=== PATIENT | female | born 1935 | race Caucasian/White ===

== ENCOUNTER 2020-01-10 16:27 | Emergency (ER) | payer SELFPAY ==
--- NOTE | 2020-01-10 17:03 | EDM.PDOC ---
<Anabel Werner - Last Filed: 01/10/20 17:33> ED HPI GENERAL MEDICAL PROBLEM - General Chief Complaint: Gastrointestinal Problem Stated Complaint: CONSTIPATION Time Seen by Provider: 01/10/20 16:50 Source of Information: Reports: Patient, RN, RN Notes Reviewed History Limitations: Reports: No Limitations - History of Present Illness INITIAL COMMENTS - FREE TEXT/NARRATIVE: 84 year old female with known history of constipation presents with c/o unable to completely empty rectal vault. states she has occasional "stringy stool," but still uncomfortable. states she has taken lactulose and colace without relief. has had to have SSE in the past. reports hx of constipation issues for 30 years, states this episode has been ongoing for "about a week now." states she has constipation issues on a weekly basis, but typically can resolve the issue on her own. states she had a colonoscopy 2 months ago in [place] for the constipation concerns, reports having polyps removed. states she does have hemorrhoids that "will come out when she pushes." reports nausea, decreased appetite. no vomiting, + flatulence, hx of HTN. denies hematochezia, denies fever or chills. Onset: Gradual Abdomen Pain Score (Numeric/FACES): 6 - Related Data Allergies Allergy/AdvReac Type Severity Reaction Status Date / Time No Known Allergies Allergy Verified 01/10/20 16:36 Home Meds: Home Meds . [Unable to Verify Home Med List] 01/10/20 [History] Past Medical History HEENT History: Reports: Hard of Hearing, Impaired Vision Cardiovascular History: Reports: Hypertension Respiratory History: Reports: None Gastrointestinal History: Reports: Chronic Constipation Genitourinary History: Reports: None PARTS COORDINATOR History: Reports: Musculoskeletal History: Reports: None Neurological History: Reports: None Psychiatric History: Reports: None Endocrine/Metabolic History: Reports: Hypothyroidism Hematologic History: Reports: None Immunologic History: Reports: None Oncologic (Cancer) History: Reports: None Dermatologic History: Reports: None - Infectious Disease History Infectious Disease History: Reports: None - Past Surgical History Head Surgeries/Procedures: Reports: None Cardiovascular Surgical History: Reports: Other (See Below) Other Cardiovascular Surgeries/Procedures: angiogram Social & Family History - Family History Family Medical History: Unobtainable - Tobacco Use Tobacco Use Status *Q: Never Tobacco User - Caffeine Use Caffeine Use: Reports: Coffee - Recreational Drug Use Recreational Drug Use: No ED ROS GENERAL - Review of Systems Review Of Systems: Comprehensive ROS is negative, except as noted in HPI. ED EXAM, GI/ABD - Physical Exam Exam: See Below Exam Limited By: No Limitations General Appearance: Alert, WD/WN, No Apparent Distress Eyes: Bilateral: Normal Appearance, EOMI Ears: Normal External Exam, Hearing Grossly Normal Nose: Normal Inspection Throat/Mouth: Normal Inspection, Normal Voice, No Airway Compromise Head: Atraumatic, Normocephalic Neck: Normal Inspection, Supple, Non-Tender, Full Range of Motion Respiratory/Chest: No Respiratory Distress, Lungs Clear, Normal Breath Sounds Cardiovascular: Normal Peripheral Pulses, Regular Rate, Rhythm, No Edema GI/Abdominal Exam: Normal Bowel Sounds, Soft, No Distention, Other (umbliicus with 1 cm black foreign body of unknown origin, pt states it has been there for some time, no one has ever been concerned, FB removed without difficulty, no drainage or redness noted to umbilicus after removal.) (Female) Exam: Deferred Rectal (Female) Exam: Deferred Back Exam: Normal Inspection, Full Range of Motion Extremities: Normal Inspection, Normal Range of Motion Neurological: Alert, Oriented, Normal Gait Psychiatric: Normal Affect, Normal Mood Skin Exam: Warm, Dry, Intact, Normal Color, No Rash Lymphatic: No Adenopathy Departure - Departure Disposition: Home, Self-Care 01 Condition: Fair Clinical Impression: Constipation - Discharge Information *PRESCRIPTION DRUG MONITORING PROGRAM REVIEWED*: No *COPY OF PRESCRIPTION DRUG MONITORING REPORT IN PATIENT RENEE: No Instructions: Chronic Constipation Forms: ED Department Discharge Additional Instructions: take remaining magnesium citrate when you get home. increase fluid intake. follow-up with Primary Care Provider for ongoing issues. Sepsis Event Note (ED) - Evaluation Sepsis Screening Result: No Definite Risk <Sade Diehl - Last Filed: 01/10/20 18:18> Course - Vital Signs Last Recorded V/S: Last Vital Signs Temp 98.4 F 01/10/20 16:31 Pulse 74 01/10/20 16:31 Resp 16 01/10/20 16:31 BP 107/86 01/10/20 16:31 Pulse Ox 96 01/10/20 16:31 - Orders/Labs/Meds Meds: Medications Discontinued Medications Generic Name Dose Route Start Last Admin Trade Name Freq PRN Reason Stop Dose Admin Magnesium Citrate 296 ml 01/10/20 17:19 01/10/20 17:40 Citrate Of Magnesia PO 01/10/20 17:20 296 ml ONETIME ONE Administration - Re-Assessments/Exams Free Text/Narrative Re-Assessment/Exam: 01/10/20 18:18 I personally performed or re-performed the physical examination and medical decision making. I have verified all student documentation or findings, including history, physical exam and/or medical decision making. Departure - Departure Time of Disposition: 17:39 Sepsis Event Note (ED) - Focused Exam Vital Signs: Vital Signs Temp Pulse Resp BP Pulse Ox 01/10/20 16:31 98.4 F 74 16 107/86 96
--- NOTE | 2020-01-10 17:13 | CR ---
PROCEDURE INFORMATION: Exam: XR Abdomen, 2 Views Exam date and time: 01/10/2020 5:03 PM Age: 84 years old Clinical indication: Other: Pain; Additional info: Constipation TECHNIQUE: Imaging protocol: XR of the abdomen. Views: 2 Views. COMPARISON: No relevant prior studies available. FINDINGS: Lungs: The lung bases are clear. There are no pleural effusions. Gastrointestinal tract: The stomach is not distended. No pathologically dilated small bowel loops are identified. There is a moderate volume of stool in the colon, with no significant stool burden seen in the sigmoid colon or rectum. There are no worrisome air-fluid levels on the upright view. Intraperitoneal space: There is no free air under the hemidiaphragms. 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 IMPRESSION: Overall unremarkable radiographic appearance of the abdomen. The stool burden is not particularly large.
[2020-01-10] MEDS ORDERED: Magnesium Citrate Solution 296 ML Bottle PO ONE (17:19)
== END 2020-01-10 17:43 | disposition home or self-care (01) ==
LOC: DL.ED 16:27
DX: K59.00 Constipation, unspecified (principal); I10 Essential (primary) hypertension
CPT/HCPCS: 74019; 99283; A9270